=== PATIENT | male | born 1970 | race Asian ===

== ENCOUNTER 2017-09-16 16:27 | Emergency (ER) | payer MEDICAID ==
[~2017-09-16] VITALS: Ht 175.3 cm; Wt 81.2 kg
[2017-09-16 16:39] VITALS: BP 132/101
[2017-09-16] MEDS ORDERED: ACETAMINOPHEN EXTRA STRENGTH 500 MG TAB ONE (16:43)
--- NOTE | 2017-09-16 16:43 | NUR ---
pt to lobby awaiting room, er aware, pt is ao, vss, nad
[2017-09-16] MEDS ORDERED: ACETAMINOPHEN EXTRA STRENGTH 500 MG TAB PO ONE (17:10)
[2017-09-16] MEDS ORDERED: NACL 0.9% 1,000 ML IV ONE (17:10)
[2017-09-16] MEDS ORDERED: NACL 0.9% 1,500 ML IV ONE (17:25)
[2017-09-16 19:08] LABS: BASOPHILS # (AUTO) 0.4 K/uL (0.00-0.22); EOSINOPHILS # (AUTO) 0.2 K/uL (0-0.4); EOSINOPHILS % (AUTO) 2.1 % (0.0-4.0); HEMATOCRIT 43.9 % (36-52); HEMOGLOBIN 14.7 g/dL (12.0-18.0); LYMPHOCYTES # (AUTO) 0.5 K/uL (2.0-11.5); LYMPHOCYTES % (AUTO) 6.5 % (20.5-51.1); MEAN CORPUSCULAR HEMOGLOBIN 30 pg (27-31); MEAN CORPUSCULAR HGB CONC 33 g/dL (33-37); MEAN CORPUSCULAR VOLUME 89 fL (80-94); MONOCYTES # (AUTO) 0.6 K/uL (0.8-1.0); MONOCYTES % (AUTO) 8.1 % (1.7-9.3); NEUTROPHILS % (AUTO) 77.9 % (42.2-75.2); PLATELET COUNT (AUTO) 265 K/uL (140-450); RED BLOOD CELL COUNT(AUTO) 4.93 MIL/uL (4.20-6.10); RED CELL DISTRIBUTION WIDTH 12.4 % (11.6-13.7); WHITE BLOOD COUNT (AUTO) 7.7 K/uL (4.8-10.8)
[2017-09-16 19:13] LABS: BASOPHILS % (AUTO) 5.4 % (0.0-2.0)
--- NOTE | 2017-09-16 19:13 | NUR ---
7m bib self with c/o fever, chills, cough x 3-4 days hx--denies, pt aao, noted on and coughing, skin warm to touch resp. even and unlabored, no distress noted.
[2017-09-16 19:21] LABS: ALBUMIN 3.4 g/dL (3.4-5.0); ANION GAP 12.8 (8-16); CARBON DIOXIDE 25.4 mmol/L (21-32); CREATININE 1.1 mg/dL (0.7-1.3); POTASSIUM 4.2 mmol/L (3.5-5.1); TOTAL BILIRUBIN 0.3 mg/dL (0.0-1.0)
[2017-09-16 19:43] VITALS: BP 129/85
--- NOTE | 2017-09-16 19:43 | NUR ---
Patient discharged with v/s stable. Written and verbal after care instructions given and explained. Patient alert, oriented and verbalized understanding of instructions. Ambulatory with steady gait. All questions addressed prior to discharge. ID band removed. Patient advised to follow up with PMD. Rx of ROBITUSSIN, MOTRIN AND TAMIFLU given. Patient educated on indication of medication including possible reaction and side effects. Opportunity to ask questions provided and answered.
== END 2017-09-16 19:43 | disposition home or self-care (01) ==
LOC: MED 16:27
DX: J09.X2 Influenza due to identified novel influenza A virus with other respiratory manifestations (principal)
CPT/HCPCS: 36415; 71046; 80053; 83605; 85025; 87040; 87804; 96360; 99285; J7030

== ENCOUNTER 2017-11-02 05:35 | Emergency (ER) | payer MEDICAID ==
[~2017-11-02] VITALS: Ht 167.6 cm; Wt 77.1 kg
[2017-11-02 05:40] VITALS: BP 180/86
--- NOTE | 2017-11-02 05:40 | NUR ---
PT TO ER BED 03 BY [facility]
[2017-11-02 05:45] VITALS: BP 180/86
[2017-11-02] MEDS ORDERED: NACL 0.9% 2,000 ML IV ONE (05:45)
[2017-11-02] MEDS ORDERED: LORazepam 2 MG/ML VIAL IVP ONE (05:45)
--- NOTE | 2017-11-02 05:50 | NUR ---
PT BIB VIA AMBULANCE DUE TO ALOC AND POSSIBLE SEIZURE BY HIS MOTHER. MOTHER TOLD EMS THAT HE HAS HX OF SEIZURE AND DENIES ANY KNOWLEDGE OF DRUG USE. PT VERY COMBATIVE AND KICKING AND YELLING AND MUMBLING OUT NONSENSICAL WORDS. PT IS PLACED ON CONTINUOUS CARDIAC MONITORING. FIRST ATTEMPT UNSUCCESSFUL DUE TO PT KEEP MOVING AND FIGHTING THE NURSE. 2 IV LINES SUCCESSFULLY STARTED. IRAD=315.5 F COOLING MEASURES APPLIED. ER , DR. BRONSON AT BED SIDE, EVALUATING PT.
[2017-11-02] MEDS ORDERED: KETAMINE 500 MG/5 ML VIAL ONE (05:55)
[2017-11-02] MEDS ORDERED: LORazepam 2 MG/ML VIAL ONE (05:59)
--- NOTE | 2017-11-02 06:00 | NUR ---
DR. BRONSON ORDERED TO CHECK TEMPERATURE RECTALLY. NOTED 106.5. DR. BRONSON MADE AWARE AND ORDERED TYLENOL SUPPOSITORY. ADMINISTERED ORDERED.
[2017-11-02] MEDS ORDERED: ACETAMINOPHEN 325 MG SUPP RC ONE (06:01)
[2017-11-02] MEDS ORDERED: ATROPINE 1 MG/10 ML SYR IVP ONE (06:04)
[2017-11-02] MEDS ORDERED: SODIUM BICARBONATE 8.4% PFS 50 MEQ/50 ML SYR IVP ONE (06:04)
[2017-11-02] MEDS ORDERED: CODE BLUE PARTICIPANT 1 EA MISC MC ONE (06:04)
[2017-11-02] MEDS ORDERED: MAGNESIUM SULFATE 50% 1000 MG/2 ML VIAL IV ONE ×2 (06:04→06:09)
[2017-11-02] MEDS ORDERED: LIDOCAINE 2% 100 MG/5 ML SYR IVP ONE (06:04)
[2017-11-02] MEDS ORDERED: EPINEPHrine PFS 0.1 MG/ML SYR IVP ONE (06:04)
--- NOTE | 2017-11-02 06:04 | NUR ---
PT ASYSTOLE ON MONITOR. NO CHEST RISE. UNABLE TO PALPATE NOR AUSCULATE PULSE. DR. BRONSON AT BED SIDE. CALLED [facility] AND STARTED CPR. PLEASE SEE CODE SHEET FOR DETAILS.
--- NOTE | 2017-11-02 06:29 | NUR ---
DR. BRONSON ORDERED TO STOPPED THE CODE AND PRONOUNCED .
[2017-11-02] MEDS ORDERED: ACETAMINOPHEN 650 MG SUPP RC ONE (06:30)
--- NOTE | 2017-11-02 06:40 | NUR ---
CALL [facility]; SPOKE WITH HOMER CONTEH, CASE NO.[id number]. WILL CALL BACK AFTER 1 HR.
--- NOTE | 2017-11-02 06:45 | NUR ---
CALL FAMILY NO.[phone]. NO.NO LONGER USE.
[2017-11-02 06:48] LABS: BARBITURATE, URINE NEG. ng/ml (NEG <=200); BENZODIAZEPINE, URINE NEG. ng/mL (NEG <=200); CANNABINOID, URINE NEG. ng/mL (NEG <=50); COCAINE, URINE NEG. ng/mL (NEG <=300); OPIATE, URINE NEG. ng/mL (NEG <=2000); PHENCYCLIDINE SCREEN,URINE NEG. ng/mL (NEG <=25)
--- NOTE | 2017-11-02 06:50 | NUR ---
CALL HOME PHONE NO.[phone]; NO ANSWER, LEFT A MESSAGE.
--- NOTE | 2017-11-02 07:08 | NUR ---
CALL MEDICAL APPOINTMENT SCHEDULER, THE EXTRUSION OPERATOR INFORMED, STATES WILL CALL BACK.
--- NOTE | 2017-11-02 07:20 | NUR ---
CALL HOME PHONE AT NO.[phone], NO ANSWER, LEFT A MESSAGE.
--- NOTE | 2017-11-02 07:41 | NUR ---
DIRECTOR DIGITAL CATALOGUE CALLED BACK, SPOKE WITH BHASKAR DRIVER; WILL CALL BACK LATER.
--- NOTE | 2017-11-02 07:45 | NUR ---
report recived by RNKERON stated spoke with eugenie as well as [facility] aw[facility] call back from both pt remains in room un touched at this time unaware if pt has primary
--- NOTE | 2017-11-02 07:59 | NUR ---
CALL HOME PHONE. NO.[phone], NO ANSWER, LEFT A MESSAGE.
--- NOTE | 2017-11-02 08:00 | NUR ---
REPORT GIVEN TO KURT TO FOLLOW UP WITH [facility], [facility] AND THE FAMILY.
--- NOTE | 2017-11-02 08:25 | NUR ---
Spoke with eugenie Del Valle informed nurse that this was a eugenie case and will be picking up pt today.Mr del valle was transfered to lab to see if pt had any further labs drawn charge made aware
--- NOTE | 2017-11-02 08:37 | NUR ---
called mother at [phone] no answer.
--- NOTE | 2017-11-02 08:41 | NUR ---
spoke with mother alison luis thi from number [id number] stated son did not have a primary dr nor did he have a mortuary at this time stated just got out of long-term.family stated will come to see pt mother stated was aware of pt .
--- NOTE | 2017-11-02 08:50 | NUR ---
family arrived at this time spoke with dr allen and viewed the pt stated had no other concerns at this time all belonging remains on pt and mother completed okay to release form awating for eugenie at this time.
--- NOTE | 2017-11-02 09:17 | NUR ---
called [facility] again spoke with ramses stated there is nothing else that was needed stated pt was a eugenie case and re informed nurse of the case number for [facility] [id number]
--- NOTE | 2017-11-02 09:50 | NUR ---
pasquale arrived at this time all paper work complted by lupillo from [facility] all tags and id band in place on pt.rigoberto recived all pt cpoies of chart manager house informed of cornors arrival
--- NOTE | 2017-11-18 20:30 | NUR ---
FOR CLARIFICATION ON 11/02/17, NSS 2000 ML IV WIDE OPEN STARTED 0545AM STOP 0625AM TOTAL INTAKE 2000 ML
== END 2017-11-02 10:01 ==
LOC: MED 05:35
DX: I46.9 Cardiac arrest, cause unspecified (principal)
CPT/HCPCS: 31500; 80305; 92950; 96360; 96372; 99291; J0171; J0461; J2001; J2060; J3475; J7030